=== PATIENT | female | born 1995 | race African-American/Black ===

== ENCOUNTER 2022-07-25 18:12 | Emergency (ER) | payer BC, OTHER ==
[2022-07-25 20:00] LABS: Bilirubin Neg (Negative); Blood, Urine 50 (Negative); Clarity Clear (Clear); Glucose, Urine (Dipstick) Normal (Negative); Ketone, Urine Negative (Negative); Leukocyte 100 (Negative); Nitrite Positive (Negative); Protein, Urine (Dipstick) Negative (Neg-Trace); Urobilinogen Normal mg/dL (Less than 2)
[2022-07-25 20:13] LABS: Bacteria/HPF 4+ HPF (None Seen); Squamous Epithelial 0-3 HPF (0-3)
[2022-07-26 20:11] LABS: Chlamydia by PCR Not Detected (NotDetected); GC by PCR Not Detected (NotDetected)
== END 2022-07-25 20:58 | disposition home or self-care (01) ==
LOC: CSHERS 18:12
DX: N39.0 Urinary tract infection, site not specified (principal); Z20.2 Contact with and (suspected) exposure to infections with a predominantly sexual mode of transmission
CPT/HCPCS: 81003; 81015; 87077; 87086; 87186; 87480; 87491; 87510; 87591; 87660; 99283

== ENCOUNTER 2022-08-17 00:23 | Emergency (ER) | payer BC, OTHER ==
[2022-08-17] MEDS ORDERED: Bicillin LA 1.2 MILLION UNITS/2 ML SYRINGE ONE (01:27)
[2022-08-17] MEDS ORDERED: Dexamethasone 10 MG/ML VIAL ONE (01:27)
== END 2022-08-17 02:00 | disposition home or self-care (01) ==
LOC: CSHERS 00:23
DX: J02.0 Streptococcal pharyngitis (principal)
CPT/HCPCS: 87430; 96372; 99283; J0561; J1100

== ENCOUNTER 2022-11-24 09:23 | Emergency (ER) | payer BC, OTHER ==
[2022-11-24 10:25] LABS: #Monocytes 0.6 10x3/uL (0.0-1.1); #Neutrophils 2.7 10x3/uL (1.5-8.4); %Basophils 0.4 % (0.0-2.0); %Eosinophils 0.8 % (0.0-6.0); %Lymphocytes 35.6 % (18.0-47.0); %Monocytes 11.4 % (0.0-10.0); %Neutrophils 51.6 % (40.0-75.0); Hemoglobin 11.3 g/dL (12.0-15.5); Mean Corpuscular HGB CONC 33.6 g/dL (32.0-36.0); Mean Corpuscular Hemoglobin 30.2 pg (27.0-33.0); Mean Corpuscular Volume 89.8 fl (81.6-98.3); Mean Platelet Volume 8.5 fl (7.4-10.4); Platelet Count 364 10x3/uL (150-450); RBC Distribution Width 12.8 % (11.5-14.5); Red Blood Cell (RBC) Count 3.74 10x6/uL (3.90-5.03); White Blood Cell (WBC) Count 5.3 10x3/uL (3.5-10.5)
[2022-11-24 10:28] LABS: Bilirubin Neg (Negative); Blood, Urine 25 (Negative); Clarity Slightly Cloudy (Clear); Glucose, Urine (Dipstick) Normal (Negative); Ketone, Urine Negative (Negative); Leukocyte 500 (Negative); Nitrite Positive (Negative); Protein, Urine (Dipstick) Negative (Neg-Trace)
[2022-11-24 10:32] LABS: Pregnancy Test - Urine (BHCG) POSITIVE (Negative); Pregu Control Background? CLEAR/WHITE (CLR/WHITE); Pregu Control Bar Appear? YES (CONTROL BAR)
[2022-11-24 10:36] LABS: RBC/HPF 0-3 HPF (0-3)
[2022-11-24 10:37] LABS: Bacteria/HPF 4+ HPF (None Seen); Mucous/LPF 1+ LPF (<2+)
[2022-11-24 10:39] LABS: ALT (SGPT) 7 U/L (8-55); AST (SGOT) 14 U/L (5-34); Alkaline Phosphatase 63 U/L (40-110); Anion Gap 12 mmol/L (10-20); BUN (Urea Nitrogen) 7 mg/dL (7.0-18.7); Bilirubin, Total 0.5 mg/dL (0.2-1.2); Calc. Creatinine Clearance 0 mL/min (70-130); Calcium 8.9 mg/dL (7.8-10.44); Carbon Dioxide 20 mmol/L (22-29); Chloride 109 mmol/L (98-107); Estimated GFR 117; Globulin 3.1 g/dL (2.4-3.5); Glucose 85 mg/dL (70-105); Lipase 31 U/L (8-78); Potassium 3.5 mmol/L (3.5-5.1); Protein, Total 7.1 g/dL (6.0-8.3); Sodium 137 mmol/L (136-145)
[2022-11-24] MEDS ORDERED: Acetaminophen 325 MG TAB ONE (10:47)
[2022-11-25 11:25] LABS: Chlamydia by PCR DETECTED (NotDetected); GC by PCR Not Detected (NotDetected)
== END 2022-11-24 15:53 | disposition home or self-care (01) ==
LOC: CSHERS 09:23
DX: O20.0 Threatened abortion (principal); O23.41 Unspecified infection of urinary tract in pregnancy, first trimester; Z3A.01 Less than 8 weeks gestation of pregnancy
CPT/HCPCS: 36415; 80053; 81003; 81015; 81025; 83605; 83690; 84702; 85025; 87077; 87086; 87186; 87480; 87491; 87510; 87591; 87660; 94760

== ENCOUNTER 2023-06-08 18:23 | Emergency (ER) | payer BC, OTHER ==
[2023-06-08] MEDS ORDERED: Ketorolac Tromethamine 30 MG/ML VIAL ONE (18:55)
== END 2023-06-08 19:50 | disposition home or self-care (01) ==
LOC: CSHERS 18:23
DX: S13.4XXA Sprain of ligaments of cervical spine, initial encounter (principal); S39.012A Strain of muscle, fascia and tendon of lower back, initial encounter; V89.2XXA Person injured in unspecified motor-vehicle accident, traffic, initial encounter
CPT/HCPCS: 70450; 72070; 72100; 72125; 96372; J1885

== ENCOUNTER 2023-07-05 10:24 | Emergency (ER) | payer BC, OTHER ==
[2023-07-05 10:57] LABS: Bilirubin Neg (Negative); Blood, Urine 50 (Negative); Clarity Slightly Cloudy (Clear); Glucose, Urine (Dipstick) Normal (Negative); Ketone, Urine Negative (Negative); Leukocyte 500 (Negative); Nitrite Positive (Negative); Pregnancy Test - Urine (BHCG) POSITIVE (Negative); Pregu Control Background? CLEAR/WHITE (CLR/WHITE); Pregu Control Bar Appear? YES (CONTROL BAR); Protein, Urine (Dipstick) 15 mg/dl (Neg-Trace); Urobilinogen Normal mg/dL (Less than 2)
[2023-07-05 11:23] LABS: Bacteria/HPF 4+ HPF (None Seen); CAUTI Indications for Culture Pelvic or flank pain; RBC/HPF 0-3 HPF (0-3); Squamous Epithelial 0-3 HPF (0-3); Urine Culture Reflex Yes Yes; WBC/HPF 21-50 HPF (0-3)
[2023-07-05] MEDS ORDERED: Acetaminophen 500 MG TAB ONE (11:32)
[2023-07-05] MEDS ORDERED: Ondansetron PF 4 MG/2 ML Vial ONE (11:33)
[2023-07-05] MEDS ORDERED: cefTRIAXone (ROCEPHIN) 2 GM VIAL ONE (11:33)
[2023-07-05 11:41] LABS: #Monocytes 0.4 10x3/uL (0.0-1.1); #Neutrophils 3.2 10x3/uL (1.5-8.4); %Basophils 0.2 % (0.0-2.0); %Eosinophils 0.4 % (0.0-6.0); %Lymphocytes 31.7 % (18.0-47.0); %Monocytes 7.4 % (0.0-10.0); %Neutrophils 60.1 % (40.0-75.0); Hematocrit 36.8 % (34.9-44.5); Hemoglobin 12.2 g/dL (12.0-15.5); Mean Corpuscular HGB CONC 33.2 g/dL (32.0-36.0); Mean Corpuscular Volume 90.6 fl (81.6-98.3); Mean Platelet Volume 8.5 fl (7.4-10.4); Platelet Count 351 10x3/uL (150-450); RBC Distribution Width 12.1 % (11.5-14.5); Red Blood Cell (RBC) Count 4.06 10x6/uL (3.90-5.03); White Blood Cell (WBC) Count 5.4 10x3/uL (3.5-10.5)
[2023-07-05 11:45] LABS: ALT (SGPT) 13 U/L (8-55); AST (SGOT) 20 U/L (5-34); Albumin 4.1 g/dL (3.5-5.0); Alkaline Phosphatase 89 U/L (40-110); Anion Gap 13 mmol/L (10-20); BUN (Urea Nitrogen) 5 mg/dL (7.0-18.7); Bilirubin, Total 0.6 mg/dL (0.2-1.2); Calc. Creatinine Clearance 0 mL/min (70-130); Carbon Dioxide 21 mmol/L (22-29); Chloride 109 mmol/L (98-107); Estimated GFR 109; Glucose 85 mg/dL (70-105); Potassium 4.2 mmol/L (3.5-5.1); Protein, Total 7.1 g/dL (6.0-8.3); Sodium 139 mmol/L (136-145)
[2023-07-05 20:41] LABS: Chlamydia by PCR, Vaginal Swab Not Detected (NotDetected); GC by PCR, Vaginal Swab Not Detected (NotDetected)
== END 2023-07-05 14:25 | disposition home or self-care (01) ==
LOC: CSHERS 10:24
DX: N10 Acute pyelonephritis (principal); N76.0 Acute vaginitis
CPT/HCPCS: 36415; 80053; 81001; 81025; 84702; 85025; 87077; 87086; 87186; 87480; 87491; 87510; 87591; 87660; 96365; 96375; J0696; J2405

== ENCOUNTER 2023-07-11 13:33 | Emergency (ER) | payer BC, OTHER ==
[2023-07-11 14:38] LABS: #Monocytes 0.5 10x3/uL (0.0-1.1); #Neutrophils 3.7 10x3/uL (1.5-8.4); %Basophils 0.5 % (0.0-2.0); %Eosinophils 0.3 % (0.0-6.0); %Lymphocytes 32.1 % (18.0-47.0); %Monocytes 7.8 % (0.0-10.0); %Neutrophils 59.1 % (40.0-75.0); Hematocrit 36.5 % (34.9-44.5); Hemoglobin 12.1 g/dL (12.0-15.5); Mean Corpuscular HGB CONC 33.2 g/dL (32.0-36.0); Mean Corpuscular Volume 90.3 fl (81.6-98.3); Mean Platelet Volume 8.7 fl (7.4-10.4); Platelet Count 385 10x3/uL (150-450); Red Blood Cell (RBC) Count 4.04 10x6/uL (3.90-5.03); White Blood Cell (WBC) Count 6.3 10x3/uL (3.5-10.5)
[2023-07-11 14:56] LABS: ALT (SGPT) 13 U/L (8-55); AST (SGOT) 16 U/L (5-34); Albumin 4.3 g/dL (3.5-5.0); Alkaline Phosphatase 87 U/L (40-110); Anion Gap 14 mmol/L (10-20); BUN (Urea Nitrogen) 6 mg/dL (7.0-18.7); Bilirubin, Total 0.3 mg/dL (0.2-1.2); Calc. Creatinine Clearance 0 mL/min (70-130); Carbon Dioxide 20 mmol/L (22-29); Chloride 108 mmol/L (98-107); Estimated GFR 101; Globulin 3.2 g/dL (2.4-3.5); Glucose 81 mg/dL (70-105); Potassium 3.9 mmol/L (3.5-5.1); Protein, Total 7.5 g/dL (6.0-8.3); Sodium 138 mmol/L (136-145)
[2023-07-11 15:44] LABS: Bilirubin Neg (Negative); Blood, Urine 150 (Negative); Clarity Clear (Clear); Glucose, Urine (Dipstick) Normal (Negative); Ketone, Urine Negative (Negative); Leukocyte Negative (Negative); Nitrite Negative (Negative); Protein, Urine (Dipstick) 15 mg/dl (Neg-Trace)
[2023-07-11 15:53] LABS: Bacteria/HPF 1+ HPF (None Seen); CAUTI Indications for Culture Pregnancy; Mucous/LPF 2+ LPF (<2+); WBC/HPF 0-3 HPF (0-3)
[2023-07-11 15:55] LABS: Urine Culture Reflex Yes Yes
== END 2023-07-11 16:18 | disposition home or self-care (01) ==
LOC: CSHERS 13:33
DX: O20.0 Threatened abortion (principal); Z3A.00 Weeks of gestation of pregnancy not specified
CPT/HCPCS: 36415; 80053; 81001; 84702; 85025; 86900; 86901; 87086; 99283

== ENCOUNTER 2024-01-29 03:31 | Emergency (ER) | payer BC, OTHER ==
[2024-01-29 04:01] LABS: Bilirubin Neg (Negative); Blood, Urine 50 (Negative); Glucose, Urine (Dipstick) Normal (Negative); Ketone, Urine Negative (Negative); Leukocyte 25 (Negative); Nitrite Positive (Negative); Protein, Urine (Dipstick) Negative (Neg-Trace); Urobilinogen Normal mg/dL (Less than 2)
[2024-01-29 04:20] LABS: Clarity Slightly Cloudy (Clear)
[2024-01-29 04:21] LABS: Bacteria/HPF 4+ HPF (None Seen); CAUTI Indications for Culture Pelvic or flank pain; Pregnancy Test - Urine (BHCG) Negative (Negative); Pregu Control Background? CLEAR/WHITE (CLR/WHITE); Pregu Control Bar Appear? YES (CONTROL BAR); RBC/HPF 0-3 HPF (0-3); Squamous Epithelial 0-3 HPF (0-3)
[2024-01-29 04:22] LABS: Urine Culture Reflex No No
[2024-01-29] MEDS ORDERED: Lidocaine 1% MPF 2 ML VIAL ONE (04:33)
[2024-01-29] MEDS ORDERED: cefTRIAXone (ROCEPHIN) 1 GM VIAL ONE (04:33)
== END 2024-01-29 04:51 | disposition home or self-care (01) ==
LOC: CSHERS 03:31
DX: N10 Acute pyelonephritis (principal); Z55.6 Problems related to health literacy
CPT/HCPCS: 81001; 81025; 87077; 87086; 87186; 96372; 99284; J0696

== ENCOUNTER 2025-07-06 08:50 | Emergency (ER) | payer BC, SELFPAY ==
[2025-07-06] MEDS ORDERED: Ondansetron PF 4 MG/2 ML Vial ONE (09:15)
[2025-07-06 09:32] LABS: #Basophils Less than 0.03 10x3/uL (0.0-0.2); #Eosinophils 0.04 10x3/uL (0.0-0.5); #Monocytes 0.35 10x3/uL (0.0-1.1); #Neutrophils 2.36 10x3/uL (1.5-8.4); %Basophils 0.5 % (0.0-2.0); %Eosinophils 0.9 % (0.0-6.0); %Lymphocytes 34.9 % (18.0-47.0); %Monocytes 8.2 % (0.0-10.0); %Neutrophils 55.3 % (40.0-75.0); Hematocrit 34.5 % (34.9-44.5); Hemoglobin 11.7 g/dL (12.0-15.5); Mean Corpuscular Hemoglobin 30.5 pg (27.0-33.0); Mean Corpuscular Volume 90.1 fL (81.6-98.3); Platelet Count 350 10x3/uL (150-450); Red Blood Cell (RBC) Count 3.83 10x6/uL (3.90-5.03); White Blood Cell (WBC) Count 4.27 10x3/uL (3.5-10.5)
[2025-07-06 09:45] LABS: BHCG - Serum Negative (NEGATIVE); Pregs Control Background? CLEAR/WHITE (CLR/WHITE); Pregs Control Bar Appear? YES (CONTROL BAR)
[2025-07-06 09:48] LABS: ALT (SGPT) 59 U/L (Less than 34); AST (SGOT) 66 U/L (11-34); Albumin 4.1 g/dL (3.1-4.5); Alkaline Phosphatase 94 U/L (40-110); Anion Gap 9 mmol/L (10-20); BUN (Urea Nitrogen) 9 mg/dL (7.0-18.7); Bilirubin, Total 0.3 mg/dL (0.3-1.2); Calc. Creatinine Clearance 0 mL/min (70-130); Calcium 8.6 mg/dL (7.8-10.44); Carbon Dioxide 22 mmol/L (22-29); Chloride 110 mmol/L (98-107); Globulin 3.6 g/dL (2.4-3.5); Glucose 87 mg/dL (70-105); Potassium 4.1 mmol/L (3.5-5.1); Sodium 137 mmol/L (136-145)
[2025-07-06 09:58] LABS: Glucose, Urine (Dipstick) Normal (Negative); Leukocyte 25 (Negative); Protein, Urine (Dipstick) 15 mg/dl (Neg-Trace); Specific Gravity, Urine 1.015 (1.005-1.030)
[2025-07-06 10:19] LABS: CAUTI Indications for Culture Pelvic or flank pain; WBC/HPF 21-50 HPF (0-3)
[2025-07-06 10:20] LABS: Bacteria/HPF 4+ HPF (None Seen)
[2025-07-06 10:22] LABS: Urine Culture Reflex Yes Yes
== END 2025-07-06 11:33 | disposition home or self-care (01) ==
LOC: CSHERS 08:50
DX: N39.0 Urinary tract infection, site not specified (principal); Z55.6 Problems related to health literacy
CPT/HCPCS: 80053; 81001; 84703; 85025; 87077; 87086; 87186; 96374; J2405

== ENCOUNTER 2025-10-30 08:25 | Emergency (ER) | payer SELFPAY ==
[2025-10-30] MEDS ORDERED: Ketorolac Tromethamine 30 MG (1 mL) VIAL ONE (09:57)
[2025-10-30 10:30] LABS: Glucose, Urine (Dipstick) Normal (Negative); Leukocyte Negative (Negative); Protein, Urine (Dipstick) Negative (Neg-Trace); Specific Gravity, Urine 1.010 (1.005-1.030)
[2025-10-30 10:49] LABS: Bacteria/HPF 4+ HPF (None Seen); CAUTI Indications for Culture Pelvic or flank pain; Mucous/LPF 2+ LPF (<2+)
[2025-10-30 10:50] LABS: Urine Culture Reflex No No
[2025-10-30] MEDS ORDERED: Mag-Al 1200 mg/1200 mg/30 ML UDCUP ONE (11:32)
[2025-10-30] MEDS ORDERED: Lidocaine Viscous Sol 2% 15 ml UD Cup ONE (11:32)
== END 2025-10-30 11:34 | disposition home or self-care (01) ==
LOC: CSHERS 08:25
DX: N39.0 Urinary tract infection, site not specified (principal); R11.2 Nausea with vomiting, unspecified
CPT/HCPCS: 71045; 81001; 87428; 96374; 96375; J1885